=== PATIENT | female | born 1985 | race Caucasian/White ===

== ENCOUNTER → 2016-09-04 | Outpatient (CLI) | payer OTHER ==
[~2016-09-04] MED LIST: PRENTAB26 PO
[2016-09-04 18:24] LABS: URINE APPEARANCE CLEAR (CLEAR); URINE BILIRUBIN NEG (NEG); URINE COLOR YELLOW; URINE NITRITE NEG (NEG); UROBILINOGEN NEG (NEG)
[2016-09-04 18:27] LABS: MANUAL MICROSCOPIC REQUIRED? NO; REVIEW REQ? NO
== END | disposition home or self-care (01) ==
LOC: MERGE 17:27 → C.LABSPEC 17:27
PROVIDERS: ATTEND Obstetrics & Gynecology
DX: Z34.01 Encounter for supervision of normal first pregnancy, first trimester (principal)

== ENCOUNTER → 2016-09-09 | Outpatient (CLI) | payer OTHER ==
[2016-09-09 16:36] LABS: BASO % 0.4 %; BASO ABS # 0.03 K/uL (0-0.2); COMPLETE YES; EOS % 1.2 %; HEMATOCRIT 36.8 % (37-47); IG% 0.1 %; LYMPH % 23.8 %; LYMPH ABS # 1.99 K/uL (1.2-3.4); MEAN CELL VOLUME 88.9 fL (80-100); MEAN CORPUSCULAR HEMOGLOBIN 30.2 pg (25-34); MEAN PLATELET VOLUME 10.4 fL (7.4-10.4); MONO % 12.8 %; NEUT % 61.7 %; PLATELET COUNT 216 K/uL (130-400); RED BLOOD COUNT 4.14 M/uL (4.2-5.4); WHITE BLOOD COUNT 8.35 K/uL (4.8-10.8)
== END | disposition home or self-care (01) ==
LOC: C.LAB1850 15:21
PROVIDERS: ATTEND Obstetrics & Gynecology
DX: Z34.01 Encounter for supervision of normal first pregnancy, first trimester (principal)

== ENCOUNTER → 2016-09-09 | Outpatient (CLI) | payer OTHER ==
[2016-09-12 02:02] LABS: CHLAMYDIA TRACH RNA*** NOT DETECTED (NOT DETECTED); GC (NEIS GONORRHOEAE)RNA** NOT DETECTED (NOT DETECTED)
== END | disposition home or self-care (01) ==
LOC: C.LABSPEC 17:57
PROVIDERS: ATTEND Obstetrics & Gynecology
DX: Z34.01 Encounter for supervision of normal first pregnancy, first trimester (principal)

== ENCOUNTER 2016-10-28 13:21 | Emergency (ER) | payer OTHER ==
[~2016-10-28] VITALS: Ht 170.2 cm; Wt 53.4 kg
[2016-10-28 13:34] VITALS: Ht 170.2 cm; Wt 53.4 kg
[2016-10-28] MEDS ORDERED: SODIUM CHLORIDE 0.9% 1000ML 1,000 ML IV STA (13:52)
[2016-10-28] MEDS ORDERED: PRENTAB26 PO (14:10)
--- NOTE | 2016-10-28 14:11 | EMERGENCY ROOM VISIT NOTE ---
History First contact with patient: 13:42 Chief Complaint: SHORTNESS OF BREATH Stated Complaint: SOB Nursing Triage Summary: woke up sob for the past 3 days. throughout the day symptoms continued. patient 15 wks preg History of Present Illness The patient is a 30 year old female who presents to the Emergency Room with complaints of shortness of breath for the past 2 days. Patient states 2 days ago that she woke up with some shortness of breath and had some increased work of breathing off and on throughout the day. Today she is short of breath at rest and her symptoms are worse with exertion. She is currently 15 weeks , she called her PCP who told her to come to the emergency department for evaluation. She denies any chest pain, dizziness or lightheadedness, syncope, nausea or vomiting, headache, leg pain or swelling. She denies any previous history of blood clots. She is and states her has been going well she denies any abdominal pain, back pain, vaginal bleeding or discharge. She denies any history of asthma or lung problems, she has been feeling well with no URI type symptoms or cough, no recent sick contacts. Review of Systems A complete 10 point review of systems was reviewed with the patient with pertinent positives and negatives as per history of present illness. All else were negative. Past Medical/Surgical History No significant past medical or surgical history Social History Smoking Status: Never Smoker Alcohol Use: none Drug Use: none Marital Status: Housing Status: lives with family Occupation Status: employed Current/Historical Medications Scheduled Multivit/Min/Iron/Fol Ac/Pren ( Vitamin), 1 TAB PO DAILY Allergies No known allergies Physical Exam Vital Signs Date Time Temp Pulse Resp B/P (MAP) Pulse Ox O2 Delivery O2 Flow Rate FiO2 10/28/16 18:22 36.7 86 16 110/69 100 10/28/16 16:44 100 Room Air 10/28/16 16:11 86 16 100 10/28/16 16:00 110/69 10/28/16 15:41 89 18 100 10/28/16 15:36 87 17 100 10/28/16 15:33 113/65 10/28/16 14:41 95 19 100 10/28/16 14:36 98 19 100 10/28/16 14:31 93 20 100 10/28/16 14:30 128/81 10/28/16 14:29 93 10/28/16 14:16 118/64 10/28/16 14:16 100 Room Air 10/28/16 13:39 97 Room Air 10/28/16 13:34 36.7 104 18 137/87 100 Room Air Physical Exam CONSTITUTIONAL: No acute distress. Well hydrated, well appearing and well nourished. Alert and oriented X 4 with normal affect. No pallor. HEENT: Normocephalic, atraumatic. Pupils equal, round and reactive to light, EOMI. TMs normal. Pharynx normal. Moist mucous membranes. NECK: Supple, full active range of motion without discomfort. RESPIRATORY: Clear to auscultation bilaterally with no wheezing, crackles, rhonchi or stridor. Equal expansion bilaterally. CARDIOVASCULAR: Regular rate and rhythm with no murmurs, rubs or gallops. Normal peripheral perfusion. No edema. GASTROINTESTINAL: Soft, nontender, nondistended. Bowel sounds present in all quadrants. Gravid abdomen, palpable fundus just above the symphysis pubis. MUSCULOSKELETAL: Full range of motion of all joints without discomfort. Bilateral calves are soft, nontender, no swelling or edema noted. INTEGUMENTARY: No rash or other significant dermatologic conditions noted. NEUROLOGIC: Cranial nerves II-XII grossly intact. No focal neurologic deficits noted. Medical Decision & Procedures ER Provider Diagnostic Interpretation: (CHEST FOR PE) ANGIO WITH CT DOSE: 185.01 mGy.cm HISTORY: Chest pain dyspnea TECHNIQUE: Multiaxial CT images of the chest were performed following the intravenous administration of contrast to evaluate the pulmonary arteries. Maximal intensity projection images were also obtained. A dose lowering technique was utilized adhering to the principles of ALARA. COMPARISON STUDY: None. FINDINGS: There is a normal caliber thoracic aorta with no evidence for dissection. There is no evidence for pulmonary embolus. No pleural effusions. No pneumothorax. The liver and spleen are unremarkable. No mediastinal or hilar lymphadenopathy. The central airways are patent. The lungs are clear. IMPRESSION: No evidence for pulmonary embolus. Laboratory Results 10/28/16 14:07 Red Blood Count 4.02, Mean Corpuscular Volume 88.8, Mean Corpuscular Hemoglobin 30.8, Mean Corpuscular Hemoglobin Concent 34.7, Mean Platelet Volume 9.9, Neutrophils (%) (Auto) 75.3, Lymphocytes (%) (Auto) 14.9, Monocytes (%) (Auto) 8.3, Eosinophils (%) (Auto) 1.0, Basophils (%) (Auto) 0.2, Neutrophils # (Auto) 8.59, Lymphocytes # (Auto) 1.70, Monocytes # (Auto) 0.94, Eosinophils # (Auto) 0.11, Basophils # (Auto) 0.02 10/28/16 14:07 Test 10/28/16 13:52 10/28/16 14:07 White Blood Count 11.39 K/uL (4.8-10.8) Red Blood Count 4.02 M/uL (4.2-5.4) Hemoglobin 12.4 g/dL (12.0-16.0) Hematocrit 35.7 % (37-47) Mean Corpuscular Volume 88.8 fL (80-100) Mean Corpuscular Hemoglobin 30.8 pg (25-34) Mean Corpuscular Hemoglobin Concent 34.7 g/dl (32-36) Platelet Count 231 K/uL (130-400) Mean Platelet Volume 9.9 fL (7.4-10.4) Neutrophils (%) (Auto) 75.3 % Lymphocytes (%) (Auto) 14.9 % Monocytes (%) (Auto) 8.3 % Eosinophils (%) (Auto) 1.0 % Basophils (%) (Auto) 0.2 % Neutrophils # (Auto) 8.59 K/uL (1.4-6.5) Lymphocytes # (Auto) 1.70 K/uL (1.2-3.4) Monocytes # (Auto) 0.94 K/uL (0.11-0.59) Eosinophils # (Auto) 0.11 K/uL (0-0.5) Basophils # (Auto) 0.02 K/uL (0-0.2) RDW Standard Deviation 41.6 fL (36.4-46.3) RDW Coefficient of Variation 12.9 % (11.5-14.5) Immature Granulocyte % (Auto) 0.3 % Immature Granulocyte # (Auto) 0.03 K/uL (0.00-0.02) Prothrombin Time 10.7 SECONDS (9.0-12.0) Prothromb Time International Ratio 1.0 (0.9-1.1) Activated Partial Thromboplast Time 26.4 SECONDS (21.0-31.0) Partial Thromboplastin Ratio 1.0 D-Dimer 690 ug/L FEU (0-500) Anion Gap 7.0 mmol/L (3-11) Est Creatinine Clear Calc Drug Dose 114.5 ml/min Estimated GFR () 140.8 Estimated GFR (Non- 121.5 BUN/Creatinine Ratio 15.7 (10-20) Calcium Level 8.6 mg/dl (8.5-10.1) Total Bilirubin 0.2 mg/dl (0.2-1) Aspartate Amino Transf (AST/SGOT) 15 U/L (15-37) Alanine Aminotransferase (ALT/SGPT) 28 U/L (12-78) Alkaline Phosphatase 48 U/L (45-117) Troponin I < 0.015 ng/ml (0-0.045) Total Protein 6.8 gm/dl (6.4-8.2) Albumin 3.1 gm/dl (3.4-5.0) Globulin 3.7 gm/dl (2.5-4.0) Albumin/Globulin Ratio 0.8 (0.9-2) Medications Administered Medications (Trade) Dose Ordered Sig/Gadiel Route Start Time Stop Time Status Last Admin Dose Admin Sodium Chloride 1,000 ml @ 999 mls/hr Q1H1M STAT IV 10/28/16 13:52 10/28/16 14:52 DC 10/28/16 13:52 999 MLS/HR ECG Indication: SOB/dyspnea Rate (beats per minute): 88 Rhythm: normal sinus Findings: no acute ischemic change, no ectopy, other (rightward axis deviation) Comparison ECG Date: no prior available Medical Decision CC: Patient presenting with complaint of shortness of breath Interpretation of Labs: Mild leukocytosis, not significantly anemic, mild hypokalemia, no other significant electrolyte abnormalities, normal renal function, normal liver enzymes, coagulation factors within normal limits. Elevated d-dimer. Differential Diagnosis: Includes, but not limited to PE, DVT, acute OK, cardiomyopathy, pneumonia, bronchitis, anemia, electrolyte abnormality, dysrhythmia, anxiety, discomfort of . Medication Reconciliation: I attest that I have personally reviewed the patient' s current medication list. Vital signs review: I reviewed the patient's vital signs and interpret them as follows: T: Afebrile; BP: Mildly hypertensive; HR: Tachycardic; RR: Within normal limits; Pulse Ox: Within normal limits on room air. Summary: Patient was evaluated at bedside, history of physical exam performed. Patient is alert and in no acute distress, resting calmly in the stretcher. She is breathing comfortably with no signs of respiratory distress, not tachypneic, no accessory muscle use, 100% on room air. Lungs are clear to auscultation in all torres. Heart sounds are normal. Pulses are normal in all 4 extremities. No edema or calf tenderness/swelling. She is noted to be mildly tachycardic, and given her state, with complaints of shortness of breath, I am concerned for PE. I will start with a d-dimer and bilateral lower extremity duplex study for evaluation. I did discuss the course of workup with the patient, she verbalized understanding and was in agreement. Additional orders were placed at bedside for CBC to assess for anemia, CMP to assess renal function, liver enzymes, electrolytes, troponin, UA, EKG to evaluate for dysrhythmia or ischemic changes. Patient discussed with Dr. Kearns, who agrees with my assessment and plan. EKG, normal sinus rhythm with no acute ischemic changes or abnormal rhythms. Labs are as above, d-dimer is clinically elevated, no other significant abnormalities. Venous duplex of the bilateral lower extremities is negative for any DVT. I discussed risks and benefits of performing a CT chest to rule out PE with the patient, specifically risks of radiation to her developing fetus. She verbalized understanding and is in agreement with plans to proceed with the CT study. CT results reviewed, negative for pulmonary embolus or any other acute findings. Patient reassessed multiple times throughout ED stay, she remains well appearing and in no distress. She continues to deny chest pain. Her tachycardia has resolved after IV fluids, her BP improved to normal levels, and her RR and O2 sats remain normal. She was updated on all results and plan for discharge. I believe her shortness of breath may be related to her progressing . I encouraged her to follow closely with her PCP and OB providers. Patient was also instructed on return precautions, she verbalized understanding. Patient was discharged in stable condition and ambulatory. Impression Primary Impression: Shortness of breath Departure Information Dispostion Home / Self-Care Condition GOOD Referrals Olivier Bob M.D.([facility] (PCP) Patient Instructions ED Diet High Potassium, ED Dyspnea Shortness of Breath, My [facility] , Preg 2nd Trimester Coping, Preg Comfort Tips Additional Instructions You have been treated in the Emergency Department your shortness of breath. Laboratory results and imaging studies have ruled out any emergent causes for your shortness of breath which would warrant admission or surgery. Specifically, there is no evidence of a blood clot in her lungs or your legs today. Drink plenty of fluids to stay well hydrated. The cause of your shortness of breath is unclear from today's evaluation, but may be related to your progressing . It is important that you follow closely with your PCP and OB providers. Please return to the emergency department if your symptoms persist or get worse , including worsening shortness of breath, chest pain, severe dizziness or passing out, coughing up blood, severe nausea or vomiting, fever/chills, or any other concerns.
[2016-10-28 14:24] LABS: BASO % 0.2 %; BASO ABS # 0.02 K/uL (0-0.2); COMPLETE YES; HEMATOCRIT 35.7 % (37-47); IG% 0.3 %; LYMPH % 14.9 %; MEAN CELL VOLUME 88.8 fL (80-100); MEAN CORPUSCULAR HEMOGLOBIN 30.8 pg (25-34); MEAN CORPUSCULAR HGB CONC 34.7 g/dl (32-36); MEAN PLATELET VOLUME 9.9 fL (7.4-10.4); MONO % 8.3 %; NEUT % 75.3 %; PLATELET COUNT 231 K/uL (130-400); RED BLOOD COUNT 4.02 M/uL (4.2-5.4); WHITE BLOOD COUNT 11.39 K/uL (4.8-10.8)
[2016-10-28 14:36] LABS: ALT/SGPT 28 U/L (12-78); BLOOD UREA NITROGEN 9 mg/dl (7-18); BUN/CREATININE RATIO 15.7 (10-20); CALCIUM 8.6 mg/dl (8.5-10.1); CARBON DIOXIDE 25 mmol/L (21-32); CHLORIDE 106 mmol/L (98-107); GLUCOSE 86 mg/dl (70-99); POTASSIUM 3.3 mmol/L (3.5-5.1); SODIUM 138 mmol/L (136-145)
[2016-10-28 14:41] LABS: ALB/GLOB RATIO 0.8 (0.9-2); ALKALINE PHOSPHATASE 48 U/L (45-117); AST/SGOT 15 U/L (15-37)
[2016-10-28 14:49] LABS: PROTHROMBIN TIME (PATIENT) 10.7 SECONDS (9.0-12.0)
--- NOTE | 2016-10-28 15:11 | DIAGNOSTIC IMAGING REPORT ---
ULTRASOUND VENOUS DOPPLER LWR EXT BILA CLINICAL HISTORY: Leg swelling SHORTNESS OF BREATH. . COMPARISON STUDY: No previous studies for comparison. FINDINGS: Real-time and color flow Doppler imaging were performed. Flow was seen within the femoral, popliteal and calf veins with no intraluminal thrombus demonstrated. The saphenous vein is patent. IMPRESSION: No evidence of lower extremity DVT. Electronically signed by: Juno Rowan M.D. 10/28/2016 3:09 PM Dictated Date/Time: 10/28/2016 3:09 PM
--- NOTE | 2016-10-28 16:42 | DIAGNOSTIC IMAGING REPORT ---
(CHEST FOR PE) ANGIO WITH CT DOSE: 185.01 mGy.cm HISTORY: Chest pain dyspnea TECHNIQUE: Multiaxial CT images of the chest were performed following the intravenous administration of contrast to evaluate the pulmonary arteries. Maximal intensity projection images were also obtained. A dose lowering technique was utilized adhering to the principles of ALARA. COMPARISON STUDY: None. FINDINGS: There is a normal caliber thoracic aorta with no evidence for dissection. There is no evidence for pulmonary embolus. No pleural effusions. No pneumothorax. The liver and spleen are unremarkable. No mediastinal or hilar lymphadenopathy. The central airways are patent. The lungs are clear. IMPRESSION: No evidence for pulmonary embolus. The above report was generated using voice recognition software. It may contain grammatical, syntax or spelling errors. Electronically signed by: Sohail Greene M.D. 10/28/2016 4:40 PM Dictated Date/Time: 10/28/2016 4:37 PM
[2016-10-28 16:44] VITALS: O2SAT 100
[2016-10-28] MEDS ORDERED: OPTIRAY 320 IV PRN (16:45)
[2016-10-28 18:22] VITALS: BP 110/69; PULSE 86; TEMP 36.7; O2SAT 100
[2016-10-28 18:50] LABS: URINE APPEARANCE CLEAR (CLEAR); URINE BILIRUBIN NEG (NEG); URINE COLOR YELLOW; URINE NITRITE NEG (NEG); URINE SPECIFIC GRAVITY > 1.045 (1.000-1.030); UROBILINOGEN NEG (NEG)
[2016-10-28 18:55] LABS: MANUAL MICROSCOPIC REQUIRED? NO; REVIEW REQ? NO
== END 2016-10-28 18:09 | disposition home or self-care (01) ==
LOC: C.EDB 13:22 → C.EDA 18:09
DX: O99.512 Diseases of the respiratory system complicating pregnancy, second trimester (principal); R06.02 Shortness of breath; Z3A.15 15 weeks gestation of pregnancy

== ENCOUNTER → 2016-11-05 | Outpatient (CLI) | payer OTHER ==
[2016-11-05 10:39] LABS: GTGD 50 Grams
[2016-11-06 14:12] LABS: AFP CONCENTRATION 53.3 NG/ML; AFP MULTIPLE OF MEDIAN 1.29; AFPTS GESTATIONAL AGE 16.6 WEEKS; AFPTS INSULIN DEP DIABETIC? NO; AFPTS MATERNAL WT 119 LBS; ALPHA-FETOPROTEIN RACE CAUCASIAN=W; HISTORY OF NTD NO; REPEAT SAMPLE? NO
== END | disposition home or self-care (01) ==
LOC: C.LAB1850 09:25
PROVIDERS: ATTEND Obstetrics & Gynecology
DX: Z34.02 Encounter for supervision of normal first pregnancy, second trimester (principal); Z3A.00 Weeks of gestation of pregnancy not specified

== ENCOUNTER → 2017-01-28 | Outpatient (CLI) | payer OTHER ==
[2017-01-28 12:48] LABS: GTGD 50 Grams
[2017-01-28 14:09] LABS: URINE APPEARANCE CLOUDY (CLEAR); URINE BILIRUBIN NEG (NEG); URINE COLOR YELLOW; URINE EPITHELIAL CELL AUTO >30 /lpf (0-5); URINE NITRITE NEG (NEG); UROBILINOGEN NEG (NEG)
[2017-01-28 14:15] LABS: MANUAL MICROSCOPIC REQUIRED? NO; REVIEW REQ? NO
== END | disposition home or self-care (01) ==
LOC: C.LAB1850 09:54
PROVIDERS: ATTEND Obstetrics & Gynecology
DX: Z34.03 Encounter for supervision of normal first pregnancy, third trimester (principal)

== ENCOUNTER → 2017-02-13 | Outpatient (CLI) | payer OTHER ==
[2017-02-13 10:04] LABS: HEMATOCRIT 32.9 % (37-47)
== END | disposition home or self-care (01) ==
LOC: C.LAB1850 09:18
PROVIDERS: ATTEND Obstetrics & Gynecology
DX: Z34.03 Encounter for supervision of normal first pregnancy, third trimester (principal)

== ENCOUNTER 2017-03-20 07:34 | Inpatient (IN) | payer OTHER ==
[~2017-03-20] VITALS: Ht 167.6 cm; Wt 67.5 kg
[2017-03-20] MEDS ORDERED: LACTATED RINGER'S 1000ML 1,000 ML IV PRN (08:33)
[2017-03-20] MEDS ORDERED: LACTATED RINGER'S 1000ML 1,000 ML IV SCH (08:33)
[2017-03-20] MEDS ORDERED: PENICILLIN G POTASSIUM IV 3 MU in DEXTROSE 5% 100ML 100 ML IV PRN (08:45)
--- NOTE | 2017-03-20 08:54 | Medical Student: [facility] ---
Med Student History & Physical Date of Service Mar 20, 2017. Chief Complaint Check Ruptured Membranes, labor History of Present Illness Source: patient, spouse, clinic records, hospital records Patient is a 31YOF, with an MARIELA of 04/18/2017 by LMP and confirmed on first trimester ultrasound, who presents to L&D at 35-5 of GA with concerns of labor and rupture of membranes. course has been uncomplicated. Patient was sleeping this morning and woke up around 4AM to roll over in bed. She felt some fluid on her thighs and at first thought she may have leaked some urine. However, she continued to leak fluid and proceeded to soak "a ton" of pantyliners. The fluid was described as being clear. The patient is unsure if she is feeling any contractions at this time, but does report some intermittent "tightening" which started around 5AM this morning. labs: Blood type O+, RI, HBV neg, HIV neg, C/G neg, VDRL/RPR nonreactive, panorama and MSAFP negative, GBS status UNKNOWN, 1 hr glucose 79mg/ dL, H&H 11.1/33.9. 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 She has no history of abnormal pap smears. She does have a history of a prior chlamydial infection. Past Medical History None. Past Surgical History [place] teeth. Family History Sister delivered a baby with a "hole in the heart and lung." Mom has a PFO Social History Smoking Status: Never Smoker Smokeless Tobacco Use: No Alcohol Use: none Drug Use: none Marital Status: Housing status: lives with significant other Occupational Status: employed Allergies Coded Allergies: No Known Allergies (Unverified , 03/20/17) Home Medications Multivit/Min/Iron/Fol Ac/Pren ( Vitamin), 1 TAB PO DAILY Review of Systems Constitutional: No fever, No chills Respiratory: No cough, No shortness of breath Cardiovascular: No chest pain, No edema, No palpitations Abdomen: No pain, No nausea, No vomiting Genitourinary - Female: No dysuria, No urinary incontinence, No urinary retention Psychiatric: No depression symptoms Physical Exam General Appearance: WD/WN, no apparent distress Eyes: normal inspection ENT: normal ENT inspection, hearing grossly normal Respiratory/Chest: chest non-tender, lungs clear, normal breath sounds, no respiratory distress, no accessory muscle use Cardiovascular: regular rate, rhythm, no edema, no gallop, no murmur, normal peripheral pulses Abdomen / GI: normal bowel sounds, non tender, soft, no organomegaly, + pertinent finding (Gravid abdomen. FHT's present. Fetus in vertex position. Estimated weight of 7lbs. ) Fundal Height: Early term heighth. Genitourinary - Female: external genitalia normal, + pertinent finding (Exam performed by Dr. Lind found the cervix to be 3cm, 80% effaced, and -2 station. ) Back: normal inspection, no CVA tenderness Extremities: normal inspection, no calf tenderness, no pedal edema Neurologic/Psych: no motor/sensory deficits, alert, normal mood/affect, oriented x 3 Skin: normal color, warm/dry, no rash Monitoring External Monitor: Baseline heart rate of 130, moderate variability, accels present, no decels, category 1 tracing. Tocodynamometer: Irregular contractions present occuring every 4-6 minutes. Assessment and Plan Assessment: Patient is a 31 YOF at 35-6 weeks of GA with PPROM and labor. There are no known complications. tracing category 1. Plan: Admit to L&D. Will continue with [place] and EFM for now. Will administer first dose of penicillin at this time for unknown GBS status. Patient is planning to get an epidural for pain control. Will order the epidural once she gets into a more consistent labor pattern. H&H is ordered. Will continue to monitor and plan for a normal vaginal delivery.
[2017-03-20 08:56] LABS: HEMATOCRIT 37.5 % (37-47); HEMOGLOBIN 12.9 g/dL (12.0-16.0); MEAN CELL VOLUME 93.3 fL (80-100); MEAN CORPUSCULAR HEMOGLOBIN 32.1 pg (25-34); MEAN CORPUSCULAR HGB CONC 34.4 g/dl (32-36); MEAN PLATELET VOLUME 10.6 fL (7.4-10.4); PLATELET COUNT 190 K/uL (130-400); RED CELL DISTRIBUTION WIDTH CV 12.7 % (11.5-14.5); RED CELL DISTRIBUTION WIDTH SD 43.2 fL (36.4-46.3)
[2017-03-20] MEDS ORDERED: PENICILLIN G POTASSIUM IV 6 MU in DEXTROSE 5% 250ML 250 ML IV ONE (09:00)
[2017-03-20 09:23] VITALS: Ht 167.6 cm; Wt 67.5 kg
[2017-03-20] MEDS ORDERED: BUPIVACAINE 0.25% 30 ML VIAL ONE (10:12)
[2017-03-20] MEDS ORDERED: FENTANYL CITRATE INJ 50 MCG/1 ML 2 ML VIAL ONE (10:13)
[2017-03-20] MEDS ORDERED: EpHEDrine SULFATE INJ 50 MG/ML AMP ONE (10:13)
[2017-03-20] MEDS ORDERED: FENTANYL 2MCG/ML ROPIV 1.25MG/ML 100ML BAG EPI ONE (10:13)
[2017-03-20] MEDS ORDERED: LACTATED RINGER'S 1000ML 500 ML IV PRN (11:31)
[2017-03-20] MEDS ORDERED: NALOXONE HCL INJ 1 MG in SODIUM CHLORIDE 0.9% 1000ML 1,000 ML IV PRN (11:31)
[2017-03-20] MEDS ORDERED: DiphenhydrAMINE HCL 50 MG/ML VIAL IV PRN (11:45)
[2017-03-20] MEDS ORDERED: FENTANYL 2MCG/ML ROPIV 1.25MG/ML 100ML BAG EPI PRN (11:45)
[2017-03-20] MEDS ORDERED: EpHEDrine SULFATE INJ 50 MG/ML AMP IV PRN (11:45)
[2017-03-20] MEDS ORDERED: NALOXONE HCL 0.4 MG/1 ML VIAL/CARP IV PRN (11:45)
[2017-03-20] MEDS ORDERED: ONDANSETRON INJ 2 MG/ML 2 ML VIAL IV PRN (11:45)
[2017-03-20] MEDS ORDERED: NALBUPHINE HCL INJ 10 MG/ML AMP IV PRN (11:45)
[2017-03-20] MEDS ORDERED: OXYTOCIN 30 UNITS/500ML NSS IV ONE (14:10)
[2017-03-20] MEDS ORDERED: OXYCODONE/ACETAMINOPHEN 5-325 TAB PO PRN (15:15)
[2017-03-20] MEDS ORDERED: OXYTOCIN 30 UNITS/500ML NSS IV PRN (15:15)
[2017-03-20] MEDS ORDERED: SUPERCREAM 0.870 % 15GM JAR EXT PRN (15:15)
[2017-03-20] MEDS ORDERED: HYDROCORTISONE ACETATE 25 MG SUPP PR PRN (15:15)
[2017-03-20] MEDS ORDERED: ACETAMINOPHEN 325 MG TAB PO PRN (15:15)
[2017-03-20] MEDS ORDERED: DIPHTHERIA/TETANUS/PERTUSSIS 0.5 ML SYR/VIAL IM. ONE (15:15)
[2017-03-20] MEDS ORDERED: LANOLIN OINT EXT PRN (15:15)
[2017-03-20] MEDS ORDERED: BENZOCAINE 20% AER SPR 82.5 GM CAN EXT PRN (15:15)
--- NOTE | 2017-03-20 15:25 | Medical Student: [facility] ---
Medical Student Delivery Note Patient is a 31 YOF now P1 who presented to L&D this morning with PPROM at 35-6 weeks of GA. Patient's history is unremarkable other than GBS status being unknown due to only 35 wks of GA. She is O+, antibody screen negative, RI, HBV negative, HIV negative, VDRL/RPR nonreactive, G/C negative, and GBS negative. Patient received epidural analgesia once she reached 3cm dilation. Over the next 5 hours she continued in a normal labor pattern with a category 1 tracing. She was then fully dilated. The patient pushed for about a half hour to deliver a viable, vigorous male infant. A nuchal cord x1 was present and immediately reduced. The mouth and nares were bulb suctioned at the perineum. The infant's shoulders and body then delivered without difficulty. The cord was doubly clamped and cut by the 's father. The infant immediately cried, however due to the being premature he was transferred to the bed for evaluation by pediatrics. Apgars were 9/10. The placenta was manually extracted. Examination of the placenta was normal, with no evidence of retained placenta and a normal three vessel cord. Attention was then turned to the patient's perineum. A midline first degree laceration was noted and repaired in the usual fashion with 3-0 vicryl. Hemostasis was achieved after repair of the laceration. EBL for delivery is 350mL. Sponge and needle count were correct. At the time of this note, and mother are resting comfortably in labor and delivery.
--- NOTE | 2017-03-20 15:31 | DELIVERY SUMMARY ---
DATE OF OPERATION: 03/20/2017 PREOPERATIVE DIAGNOSIS: 1. Premature rupture of membranes at 35 6/7 weeks. 2. labor. POSTOPERATIVE DIAGNOSIS: Same. PROCEDURES: 1. Epidural anesthesia. 2. Normal spontaneous vaginal delivery. 3. Small vaginal laceration with repair. SURGEON: Dr. Almeida. GASTROINTESTINAL TECHNICIAN: Vasiliy Nava, 3. ANESTHESIA: Epidural. PROCEDURE: The patient presented to labor and delivery noting that she had been leaking fluid since about 4:00 in the morning. It was confirmed that she ruptured membranes for clear fluid and she was 3, 80, -2 and tony. She was admitted. She was expectantly managed. She desired an epidural, was 4 and 90. Epidural was placed. She progressed quickly and spontaneously to complete complete and +2 station and pushed effectively to deliver a viable male in ALBIN presentation. A nuchal cord was reduced x1. The nose and mouth were bulb suctioned. The rest of the was then delivered without difficulty. The cord was clamped and cut. The was handed off to the awaiting theatrical variety agent for drying and attention. Cord blood and gases were obtained. Placenta was manually extracted as there was one lobe that was slightly adherent. Hemostasis was then obtained with dilute Pitocin and fundal massage. Small vaginal introital laceration was repaired with 3-0 Vicryl. The perineum, rest of the cervix, sulci and rectum were all examined and found to be intact. Estimated blood loss 400 cc. Apgars 9 and 10. Mother and baby doing well at the end of the delivery. I attest to the content of the Intraoperative Record and any orders documented therein. Any exception s are noted below.
--- NOTE | 2017-03-20 19:02 | Anesthesia Procedure Note ---
Anesthesia Epidural Removal Nt Date & Time Mar 20, 2017 at 19:02 Vital Signs Pain Intensity: 6.0 Notes Mental Status: alert / awake / arousable, participated in evaluation Nausea / Vomiting: adequately controlled Pain: adequately controlled Airway Patency, RR, SpO2: stable & adequate BP & HR: stable & adequate Hydration State: stable & adequate Neuraxial Anesthesia: was administered Anesthetic Complications: no major complications apparent, pt satisfied with anesthetic care Epidural: removed without complications, with tip intact
[2017-03-20 19:10] VITALS: BP 128/88; PULSE 101; TEMP 37.3
[2017-03-20] MEDS: DOCUSATE SODIUM 100 MG CAP PO SCH (20:00)
[2017-03-20] MEDS: IBUPROFEN 600 MG TAB PO PRN (23:26)
[2017-03-20 23:30] VITALS: BP 141/91; PULSE 92; TEMP 37.7
[2017-03-21 00:15] VITALS: BP 134/73; PULSE 106; TEMP 37.7; O2SAT 97
[2017-03-21 03:15] VITALS: BP 130/78; PULSE 77; TEMP 37.3
[2017-03-21] MEDS: IBUPROFEN 600 MG TAB PO PRN ×2 (03:41→17:37)
--- NOTE | 2017-03-21 06:58 | Medical Student: [facility] ---
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 Subjective conversation w/ patient, conversation w/ family, physical exam, chart review, lab review Ambulation: limited ambulation Voiding: no voiding problems, no incontinence Diet Tolerance: Regular Diet Lochia: Moderate Feeding Type: Breast Feeding Pain: Minimal. Controlled with motrin. Notes: Lory is doing well. She got about 5 hours of sleep last night, describing this whole experience as "unreal." We talked about some of the hormonal changes that happen post- and some signs of post- depression. She doesn't currently feel like she's experiencing any depression, just that she is adjusting to the fact that the baby is here a month earlier than planned. Lochia is slowing down for her overnight. She is trying to breastfeed but the baby is having some difficulty latching so she is supplementing with breast pumping. Vitals were stable overnight. Review of Systems Constitutional: No fever, No chills Respiratory: No cough, No shortness of breath Cardiac: No chest pain, No palpitations Breast: No breast pain Abdomen: No pain, No nausea, No vomiting, No diarrhea Female : No dysuria, No incontinence Objective Vital Signs Date Time Temp Pulse Resp B/P (MAP) Pulse Ox O2 Delivery O2 Flow Rate FiO2 03/21/17 03:15 37.3 77 18 130/78 (95) Room Air 03/21/17 00:15 37.7 106 18 134/73 (93) 97 Room Air 03/20/17 23:30 Room Air 03/20/17 23:30 37.7 92 18 141/91 (108) Room Air 03/20/17 19:10 Room Air 03/20/17 19:10 37.3 101 16 128/88 (101) Room Air Physical Exam General Appearance: WELL-APPEARING, WD/WN, NO APPARENT DISTRESS Respiratory/Chest: chest non-tender, lungs clear, normal breath sounds, no respiratory distress, no accessory muscle use Cardiovascular: regular rate, rhythm, no edema, no gallop, no JVD, no murmur Abdomen: normal bowel sounds, non tender, soft Fundus: Firm, Relation to Umbilicus (2cm below the umbilicus) Extremities: normal range of motion, non-tender, no pedal edema, no calf tenderness Laboratory Results Last 24 Hours Test 03/20/17 08:39 2/1/18 11:31 03/21/17 04:44 White Blood Count 14.70 K/uL Red Blood Count 4.02 M/uL Hemoglobin 12.9 g/dL Hematocrit 37.5 % Mean Corpuscular Volume 93.3 fL Mean Corpuscular Hemoglobin 32.1 pg Mean Corpuscular Hemoglobin Concent 34.4 g/dl RDW Standard Deviation 43.2 fL RDW Coefficient of Variation 12.7 % Platelet Count 190 K/uL Mean Platelet Volume 10.6 fL Amniotic Fluid Protein POS Assessment and Plan Post- Day Number: 1 Continue Routine Care: Assessment: 31YOF now P1 PPD#1 s/p NVD. Lory's course thus far has been uncomplicated. Plan: Will continue with routine care. Repeat H&H drawn this morning. Continue with motrin prn for controlling pain. Discussed about the role of lawrence Ng, our home planning consultant salesperson, in helping with given this is her first baby and the baby is premature. She was excited to meet with her. I spoke with Berenice and she is going to meet with her today. Encouraged Lory to be up and walking laps around the unit today.
[2017-03-21 07:49] LABS: HEMATOCRIT 35.6 % (37-47); HEMOGLOBIN 12.3 g/dL (12.0-16.0)
[2017-03-21] MEDS ORDERED: DOCUSATE SODIUM 100 MG CAP PO SCH (08:00)
--- NOTE | 2017-03-21 08:04 | Progress Note ---
Subjective Mar 21, 2017. Subjective conversation w/ patient, physical exam, lab review Ambulation: ambulating normally Voiding: no voiding problems Passing Gas: Yes Diet Tolerance: Regular Diet Lochia: Small Feeding Type: Breast Feeding Pain: controlled with oral pain meds Objective Vital Signs Date Time Temp Pulse Resp B/P (MAP) Pulse Ox O2 Delivery O2 Flow Rate FiO2 03/21/17 03:15 37.3 77 18 130/78 (95) Room Air 03/21/17 00:15 37.7 106 18 134/73 (93) 97 Room Air 03/20/17 23:30 Room Air 03/20/17 23:30 37.7 92 18 141/91 (108) Room Air 03/20/17 19:10 Room Air 03/20/17 19:10 37.3 101 16 128/88 (101) Room Air Physical Exam General Appearance: WELL-APPEARING, WD/WN, NO APPARENT DISTRESS Abdomen: non tender, no organomegaly Fundus: Firm, Non-Tender, Relation to Umbilicus (2 below u) Extremities: non-tender, normal inspection Laboratory Results Last 24 Hours Test 03/20/17 08:39 03/20/17 11:31 03/21/17 07:21 White Blood Count 14.70 K/uL Red Blood Count 4.02 M/uL Hemoglobin 12.9 g/dL 12.3 g/dL Hematocrit 37.5 % 35.6 % Mean Corpuscular Volume 93.3 fL Mean Corpuscular Hemoglobin 32.1 pg Mean Corpuscular Hemoglobin Concent 34.4 g/dl RDW Standard Deviation 43.2 fL RDW Coefficient of Variation 12.7 % Platelet Count 190 K/uL Mean Platelet Volume 10.6 fL Amniotic Fluid Protein POS Assessment and Plan Problem List Medical Problems: (1) Shortness of breath Status: Acute Post- Day#: 1 Continue Routine Care: Doing well. Routine care.
[2017-03-21] MEDS: PRENATAL VITAMIN TAB PO SCH (08:35)
[2017-03-21] MEDS: DOCUSATE SODIUM 100 MG CAP PO SCH ×2 (08:36→20:42)
--- NOTE | 2017-03-21 09:19 | Discharge Instructions ---
Discharge Instructions Date of Service Mar 21, 2017. Admission Reason for Admission: Check Ruptured Membranes Discharge Discharge Diagnosis / Problem: Vaginal Delivery Discharge Goals Goal(s): Routine recovery after delivery Medications Continue Dispensed Medications: supercream, dermaplast, tucks, lansinoh Activity Recommendations Activity Limitations: per Instructions/Follow-up section . Instructions / Follow-Up Instructions / Follow-Up ACTIVITY RECOMMENDATIONS: * Gradual return to full activity over the next 2-3 weeks. * No lifting - nothing heavier than baby over the next 2-3 weeks. * Do not engage in vigorous exercise, sexual activity or sports until cleared by your physician. * Do not drive or operate any motorized equipment until cleared by your physician. * You may shower/bathe daily. MEDICATIONS: For discomfort or pain, you may use Acetaminophen (Tylenol), Ibuprofen (Advil), or Naproxen (Aleve) following the package directions. For constipation you may use Colace following the package directions. BREAST CARE: If you are not breast feeding: * Wear a supportive bra 24 hours a day for one to two weeks. * Avoid stimulating your breasts and nipples as much as possible during the first few weeks after delivery. * When taking a shower, have the warm water hit your back, not breasts. * When your breasts feel full, apply ice packs. Usually three to four times a day helps ease the discomfort. * Take a mild pain medication (Tylenol / Motrin) when you are uncomfortable. If breast feeding: * Use breast milk to lubricate nipples. Lansinoh cream may be used for sore nipples. You do not need to remove cream prior to breast feeding. If using a different brand of cream, check the label for directions regarding removal of cream prior to nursing. * Wear a supportive bra. * If having problems with breasts or breast feeding, call a contact center consultant or your health care provider. EPISIOTOMY CARE: After delivery, if you have an episiotomy (stitches), the following steps will ease discomfort and aid healing. * For the first 24 hours after delivery, place ice packs next to your episiotomy to help reduce swelling. * After the first 24 hour-period, sitz baths, either portable or in the tub, are suggested. A shower with a shower arm sprayed over the episiotomy may be comforting. * Geraldine care should be done after each voiding and bowel movement. Squirt warm water from a plastic bottle over the perineum (region of the body between the anus and urinary opening) and pat dry. * Use Dermoplast to ease discomfort. Shake container. [place] directly over the episiotomy. Place a Tucks on a clean sanitary pad next to your episiotomy. SPECIAL CARE INSTRUCTIONS: When you are discharged from the hospital, it is important for you to follow the instructions listed below: * During the first week at home, you should be able to care for yourself and your baby. In addition, the usual light household activities are encouraged. * Limit your activities to the way you feel. Do not try to clean the house or move furniture. Be sensible. * If you actively engage in sports and have done so up until the time of your delivery, you may resume these activities as soon as you feel able. This may take up to one month or even longer. Use good judgment. * Continue to take your vitamins for at least six weeks after the of your baby. * Your diet need not be limited unless you were on a special diet before your delivery. Breast-feeding mothers need around 2500 calories per day and at least 64-80 ounces of fluid per day (8 to 10 glasses). * You should eat foods from the four major food groups. Crash diets or fad diets are to be avoided. Eating lean meats, fresh fruits and vegetables, low-fat dairy products, high fiber foods and a regular exercise program, will help you get back to your pre- weight without putting your health at risk. * Constipation is sometimes a problem after delivery. Take a mild laxative as needed. If breast feeding, Milk of Magnesia is acceptable to use. You may use a suppository or Fleets enema if no episiotomy. * A daily shower or tub bath is suggested. Be sure to thoroughly and gently dry the perineum. * A bloody vaginal discharge will usually continue until around four weeks post . A small amount of bleeding may continue for as long as six weeks. Vaginal discharge changes from the bright red bleeding after delivery to pink then brownish and finally yellowish-pink before becoming white and disappearing. * Bleeding may increase with activity. Your first period may come in 4-8 weeks. If you are breast feeding, your period may be delayed even longer. * [place] (sex) can begin whenever both you and your partner feel comfortable and do not have any form of genital infection. It is recommended that you wait at least six weeks for internal and external healing to occur. If you have questions, please talk to your health care practitioner. A condom should be used to prevent infection and . * Foreplay, gentle intercourse and lubrication is very important the first several times to prevent pain. A water-based lubricant such as K-Y jelly or Astroglide may be used. * If you have RH negative blood and your baby is RH positive, you will receive RHOGAM by injection prior to discharge. The nurse will give you a card to keep with you that has the date and place that you received RHOGAM after delivery. * During your care, you had a Rubella screen done to check for the presence of rubella antibodies in your blood. If your test was negative, you will receive a Rubella vaccine prior to discharge. This vaccine may cause a fever, soreness at the injection site and flu-like symptoms. If these symptoms persist, notify your health care practitioner. is not advised for one month after a Rubella vaccine. * Verbalizes understanding of car seat law as reviewed with patient nursing. * Car Seat hand-out given and reviewed with patient by nursing. * Shaken baby information reviewed with patient by nursing. Call you doctor if: * Heavy bleeding (saturating several pads an hour) or passing clots the size of your fist. * A fever >101 degrees F (38.3 degrees C) on two occasions four hours apart and /or chills. * Unusual pain in the pelvic or vaginal areas. * "Baby Blues" lasting longer than two weeks. If you have any questions or concerns, call your health care practitioner at . FOLLOW UP VISIT: * Please call the office at to schedule a 6 week examination. It is important you keep this appointment. It is important for you to make arrangements for either yearly or twice yearly check-ups thereafter. Current Hospital Diet Patient's current hospital diet: Regular OB Diet Discharge Diet Recommended Diet: Regular Diet Pending Studies Studies pending at discharge: no Medical Emergencies . Who to Call and When: Medical Emergencies: If at any time you feel your situation is an emergency, please call 911 immediately. . Non-Emergent Contact Non-Emergency issues call your: Primary Care Provider . . "Provider Documentation" section prepared by Chayo Menjivar. . VTE Core Measure Inpt VTE Proph given/why not?: Treatment not indicated
[2017-03-21 12:38] VITALS: BP 129/87; PULSE 89; TEMP 37
[2017-03-21 15:46] VITALS: BP 135/83; PULSE 97; TEMP 37.1
[2017-03-21 17:31] VITALS: TEMP 37.4
[2017-03-22 00:10] VITALS: BP 128/79; PULSE 76; TEMP 37; O2SAT 98
--- NOTE | 2017-03-22 06:30 | Progress Note ---
Subjective Mar 22, 2017. Subjective conversation w/ patient Ambulation: ambulating normally Voiding: no voiding problems Passing Gas: Yes Diet Tolerance: Regular Diet Lochia: Moderate Feeding Type: Breast Feeding Pain: Minimal pain reported, well controlled with analgesia Review of Systems Constitutional: No fever, No chills Respiratory: No cough, No shortness of breath Cardiac: No chest pain Abdomen: No pain, No nausea, No vomiting Female : No dysuria Objective Vital Signs Date Time Temp Pulse Resp B/P (MAP) Pulse Ox O2 Delivery O2 Flow Rate FiO2 03/22/17 00:10 37.0 76 18 128/79 (95) 98 Room Air 03/22/17 00:10 98 Room Air 03/21/17 17:31 37.4 03/21/17 15:46 37.1 97 16 135/83 (100) 03/21/17 12:38 Room Air 03/21/17 12:38 37.0 89 18 129/87 (101) Room Air Physical Exam General Appearance: WELL-APPEARING, WD/WN, NO APPARENT DISTRESS Respiratory/Chest: chest non-tender, lungs clear, normal breath sounds, no respiratory distress, no accessory muscle use Cardiovascular: regular rate, rhythm, no edema, no gallop, no murmur Abdomen: normal bowel sounds, non tender, soft Fundus: Firm, Non-Tender, Relation to Umbilicus (3 below) Extremities: normal inspection, no pedal edema, no calf tenderness Laboratory Results Last 24 Hours Test 03/21/17 07:21 Hemoglobin 12.3 g/dL Hematocrit 35.6 % Medications Current Inpatient Medications Medications (Trade) Dose Ordered Sig/Gadiel Route Start Time Stop Time Status Last Admin Dose Admin Oxytocin (Pitocin IV) 30 units UD PRN IV 03/20/17 15:15 04/19/17 15:14 Benzocaine (Dermoplast Aero Spr) 1 appln PRN PRN EXT 03/20/17 15:15 04/19/17 15:14 Cocaine HCl (Supercream 0.870% Cr) BID PRN EXT 03/20/17 15:15 04/03/17 15:14 Hydrocortisone Acetate (Anusol Hc Supp) 25 mg BID PRN DC 03/20/17 15:15 04/19/17 15:14 Lanolin (Lanolin Oint) PRN PRN EXT 03/20/17 15:15 04/19/17 15:14 Prenat Multivit/ [place]/Iron/Folic Ac ( Vitamin Tab) 1 tab DAILY PO 03/21/17 08:00 04/20/17 07:59 03/21/17 08:35 1 TAB Ibuprofen (Motrin Tab) 600 mg Q4H PRN PO 03/20/17 15:15 04/19/17 15:14 03/21/17 17:37 600 MG Acetaminophen (Tylenol Tab) 650 mg Q6H PRN PO 03/20/17 15:15 04/19/17 15:14 Oxycodone/ Acetaminophen (Percocet 5-325mg Tab) 1 tab Q4H PRN PO 03/20/17 15:15 04/03/17 15:14 Docusate Sodium (coLACE CAP) 100 mg BID PO 03/20/17 20:00 04/19/17 19:59 03/21/17 20:42 100 MG Assessment and Plan Problem List Medical Problems: (1) Shortness of breath Status: Acute Post- Day#: 2 Continue Routine Care: 31 year old [id number] s/p NVD day 2 - O+, rubella immune, GBS -ve - patient doing well clinically - continue regular diet - continue encouraging ambulation and - monitor lochia - vitals reviewed and wnl - Hgb stable - 12.2 -> 12.3 - will review d/c instructions as pt ready for d/c today Resident Physician Supervision Note: I was present with Dr. Menjivar during the history and exam. I discussed the case with the resident and agree with the findings and plan as documented in the note. Any exceptions or clarifications are listed here: Doing well PPD#2. Discharge home today. Documented By: Katiana Christiansen Resident Tracking Resident Involvement: Resident Care Provided Care Provided: OB Delivery
[2017-03-22 07:25] VITALS: BP 124/77; PULSE 86; TEMP 37.1; O2SAT 97
[2017-03-22] MEDS: PRENATAL VITAMIN TAB PO SCH (08:50)
[2017-03-22] MEDS: DOCUSATE SODIUM 100 MG CAP PO SCH (08:50)
[2017-03-22 16:15] VITALS: BP_DIAS 77; PULSE 86; TEMP 37.1
== END 2017-03-22 16:15 | disposition home or self-care (01) | DRG 775 ==
LOC: C.OPB 07:34 → C.LD 07:34 → C.OPB 08:34 → C.LD 08:34 → C.OBG 18:37
PROVIDERS: ADMIT Obstetrics & Gynecology; ATTEND Obstetrics & Gynecology
PROC: 0UQGXZZ Repair Vagina, External Approach (ICD-10-PCS; principal; 2017-03-20)
PROC: 10E0XZZ Delivery of Products of Conception, External Approach (ICD-10-PCS; principal; 2017-03-20)
DX: O42.913 Preterm premature rupture of membranes, unspecified as to length of time between rupture and onset of labor, third trimester (principal); O60.14X0 Preterm labor third trimester with preterm delivery third trimester, not applicable or unspecified; O71.4 Obstetric high vaginal laceration alone; O69.81X0 Labor and delivery complicated by cord around neck, without compression, not applicable or unspecified; Z3A.35 35 weeks gestation of pregnancy; Z37.0 Single live birth

== ENCOUNTER → 2017-04-30 | Outpatient (CLI) | payer OTHER | END | disposition home or self-care (01) | LOC: C.PAPS 09:46 | PROVIDERS: ATTEND Obstetrics & Gynecology | DX: Z12.4 Encounter for screening for malignant neoplasm of cervix (principal) ==

== ENCOUNTER 2019-07-01 18:09 | Inpatient (IN) ==
[2019-07-01] MEDS: LACTATED RINGER'S 1,000 ML IV PRN ×2 (18:34→20:32)
[2019-07-01] MEDS ORDERED: OXYTOCIN 30 UNITS/500 ML BAG IV PRN ×2 (19:20→21:48)
[2019-07-01] MEDS ORDERED: BUPIVACAINE 0.25% 30 ML VIAL ONE (19:36)
[2019-07-01] MEDS ORDERED: ePHEDrine sulfate 50 MG/ML AMP ONE (19:36)
[2019-07-01] MEDS ORDERED: fentaNYL citrate 100 MCG/2 ML VIAL ONE (19:36)
[2019-07-01] MEDS ORDERED: fentaNYL 2MCG/ML ROPIV 1.25MG/ML 100 ML BAG EPI ONE (19:37)
[2019-07-01 19:39] LABS: Hematocrit (blood only) 39.6 % (37-47); Hemoglobin 13.6 g/dL (12.0-16.0); Mean Corpuscular Hemoglobin 31.3 pg (25-34); Mean Platelet Volume 10.3 fL (7.4-10.4); Platelet Count 221 K/uL (130-400); RDW Coefficient of Variation 12.9 % (11.5-14.5); RDW Standard Deviation 43.4 fL (36.4-46.3); Red Blood Count 4.35 M/uL (4.2-5.4)
[2019-07-01 19:51] LABS: Mean Corpuscular Hgb Conc 34.3 g/dL (32-36)
--- NOTE | 2019-07-01 20:16 | Anesthesiology Consultation ---
Date of Service July 01, 2019 Assessment & Plan Chart Review Chart Review: Acceptable Risk for Labor Epidural Consults Requested none History Height/Weight Height: 5 ft 7 in Weight: 64.864 kg Allergies Allergy/AdvReac Type Severity Reaction Status Date / Time No Known Allergies Allergy Verified 07/01/19 13:14 Medications Home Medications Medication Instructions Recorded Confirmed Last Taken PNV [id number]-ferrous fumarate-FA 1 tab PO DAILY 07/01/19 07/01/19 06/30/19 20:30 [] docusate sodium [Colace] 100 mg PO DAILY 07/01/19 07/01/19 07/01/19 15:00 ferrous sulfate 325 mg PO DAILY 07/01/19 07/01/19 07/01/19 15:00 Active Medications Generic Name Dose Route Start Last Admin Trade Name Freq PRN Reason Stop Dose Admin Lactated Ringer's 1,000 mls @ 125 mls/hr 07/01/19 19:40 07/01/19 18:34 Lr IV 07/03/19 19:39 999 mls/hr .Q8H PRN Administration L&D Protocol Protocol Past Medical History Medical History Chlamydia Encounter for anatomic survey Post depression labor premature rupture of membranes (Resolved) Varicella Past Family History Family History Mother PFO (patent foramen ovale) Depression Mother Anemia Past Surgical History Surgical History S/P wisdom tooth extraction Social History Smoking Status: Never smoker Do You Dip or Chew Tobacco: No Hx Alcohol Use: No Hx Substance Use: No Physical Exam Vital Signs Last Vital Signs Temp 36.9 C 07/01/19 18:41 Pulse 90 07/01/19 20:14 Resp 20 07/01/19 18:41 BP 107/58 L 07/01/19 20:14 Pulse Ox 100 07/01/19 20:11 Testing Laboratory Results 07/01/19 19:31
[2019-07-01] MEDS ORDERED: fentaNYL 2MCG/ML ROPIV 1.25MG/ML 100 ML BAG EPI PRN (20:17)
[2019-07-01] MEDS ORDERED: DiphenhydrAMINE HCL 50 MG/ML VIAL IV PRN (20:17)
[2019-07-01] MEDS ORDERED: NALBUPHINE HCL INJ 10 MG/ML AMP IV PRN (20:17)
[2019-07-01] MEDS ORDERED: NALOXONE HCL 0.4 MG/1 ML VIAL/CARP IV PRN (20:17)
[2019-07-01] MEDS ORDERED: NALOXONE HCL 1 MG in SODIUM CHLORIDE 0.9% 1000ML 1,000 ML IV PRN (20:17)
[2019-07-01] MEDS ORDERED: ePHEDrine sulfate 50 MG/ML AMP IV PRN (20:17)
--- NOTE | 2019-07-01 21:19 | Delivery Summary ---
Vaginal Delivery Summary Date of Service July 01, 2019 Vaginal Delivery Summary Vaginal Delivery Summary: Pre-delivery diagnoses: 33yo @ 38 4/7, spont labor Post-delivery diagnoses: same Procedure: spontaneous vaginal delivery Surgeon: Katiana Christiansen DO Complications: none Findings: Viable male . Apgars: 8/9. Weight pending, please see nursery records. Estimated blood loss: 300ml Description of delivery: The patient progressed to complete with epidural anesthesia. She then began to push. She spontaneously vaginally delivered a viable from the cephalic presentation. The head delivered in MICHAEL position. Nuchal cord x 1, easily reduced. The anterior shoulder delivered, followed by the posterior shoulder, followed by the body. The baby was placed on mother's abdomen and a spontaneous cry was heard. Delayed cord clamping was employed, and the cord was doubly clamped and cut. Cord blood was obtained. The placenta was delivered spontaneously intact with a 3-vessel cord. The uterus and vagina were swept of clots and debris. IV pitocin was given. The uterus became firm. The cervix, vagina, and perineum were inspected and no lacerations were noted. Excellent hemostasis was observed. The mother and baby are recovering in stable and good condition in the room. Sponge and instrument counts were correct x 2. Katiana Christiansen DO [facility] [place]
--- NOTE | 2019-07-01 21:36 | Anesthesia Procedure Note ---
Date of Service July 01, 2019 Anesthesia Post Epidural Note Vital Signs Vital Signs: Temp Pulse Resp BP Pulse Ox 37.0 C 106 H 18 159/67 H 97 07/01/19 20:29 07/01/19 21:31 07/01/19 20:30 07/01/19 21:20 07/01/19 21:31 Pain Intensity Bilateral Abdomen: Pain Intensity: 1 Notes Mental Status: alert / awake / arousable Nausea / Vomiting: adequately controlled Pain: adequately controlled Airway Patency, RR, SpO2: stable & adequate BP & HR: stable & adequate Hydration State: stable & adequate Neuraxial Anesthesia: was administered and sensory block is resolving Anesthetic Complications: no major complications apparent and Pt Satisfied with anesthetic care Epidural: Removed without complications and With tip intact
[2019-07-01] MEDS ORDERED: OXYCODONE/ACETAMINOPHEN 5mg/325mg TAB PO PRN (21:48)
[2019-07-01] MEDS ORDERED: BENZOCAINE 20% AER SPR 82.5 GM CAN EXT PRN (21:48)
[2019-07-01] MEDS ORDERED: bisacodyL 10 MG SUPP PR PRN (21:48)
[2019-07-01] MEDS ORDERED: SUPERCREAM 0.870% 15 GM JAR EXT PRN (21:48)
[2019-07-01] MEDS ORDERED: HYDROCORTISONE ACETATE 25 MG SUPP PR PRN (21:48)
[2019-07-01] MEDS ORDERED: ACETAMINOPHEN 325 MG TAB PO PRN (21:48)
[2019-07-01] MEDS ORDERED: DIPHTHERIA/TETANUS/PERTUSSIS 0.5 ML SYR/VIAL IM ONE (21:48)
[2019-07-02] MEDS: IBUPROFEN 600 MG TAB PO PRN ×5 (01:43→20:25)
--- NOTE | 2019-07-02 06:26 | Obstetrical Progress Note ---
Date of Service July 02, 2019 Assessment & Plan (1) Status post vaginal delivery: Lory is a 33 yo on PPD 1 after at 38w 5d - GBS -, Blood Type O+, Rubella immune -Vitals reviewed and WNL -patient is doing clinically well Continue routine post care - After discharge will have [address] Christiansen. Admission and Anticipated Discharge Date Admission Date: July 01, 2019 Supervising Physician Co-Signing Physician Notes Resident Physician Supervision Note: I interviewed and examined the patient. Discussed with Dr. Neely and agree with findings and plan as documented in the note. Any exceptions or clarifications are listed here: PPD#1 doing well. Continue routine care. Documented By: Katiana Christiansen, Subjective Ambulation: ambulating normally Voiding: no voiding problems Passing Gas:: Yes Diet Tolerance:: regular diet Lochia:: Small Feeding Type:: breast feeding some cramping, worse with nursing Review of Systems Constitutional: no fever, no chills and no sweats Eyes: no worsening vision Respiratory: no cough and no dyspnea Cardiovascular: no chest pain, no palpitations, no edema and no calf pain Gastrointestinal: no nausea and no vomiting Genitourinary: no dysuria and no urinary frequency Neurologic: no headache(s) Physical Exam Constitutional: WD/WN, vitals as above no acute distress Respiratory: normal respiratory effort, lungs clear to auscultation does not use accessory muscles Auscultation: no crackles, no rales, no rhonchi, no wheezes and no pleural rub Cardiovascular: Rate/Rhythm: regular rate and regular rhythm Heart Sounds: normal S1 and normal S2; no gallop, no murmur and no cardiac rub Extremities: no calf tenderness and no pedal edema Gastrointestinal (Abdomen): Inspection/Auscultation: normal bowel sounds; abdomen not distended Percussion/Palpation: abdomen soft Genitourinary: Uterus: fundus firm, palpable 2 cm below the umbilicus Results & Data ([facility]) Vital Signs (Past 12 Hours) Vital Signs Temp Pulse Pulse Resp BP BP Pulse Ox 07/02/19 04:45 36.7 C 81 18 119/69 07/02/19 00:30 36.8 C 81 18 135/83 07/01/19 23:34 96 H 130/71 07/01/19 23:19 96 H 140/82 05 23:04 91 H 125/79 05 22:49 93 H 18 123/81 05 22:38 88 92 07/01/19 22:36 96 H 96 07/01/19 22:34 87 127/77 05 22:31 100 H 96 07/01/19 22:26 101 H 97 07/01/19 22:25 99 H 92 07/01/19 22:21 98 H 97 07/01/19 22:19 95 H 18 120/70 05 22:16 92 H 98 07/01/19 22:11 98 H 99 07/01/19 22:06 90 98 07/01/19 22:04 81 18 117/81 07/01/19 22:01 91 H 98 07/01/19 21:56 102 H 98 07/01/19 21:51 102 H 97 07/01/19 21:49 93 H 18 111/78 07/01/19 21:46 86 98 07/01/19 21:41 96 H 120/76 99 07/01/19 21:36 85 98 05 21:35 18 07/01/19 21:31 106 H 97 07/01/19 21:26 93 H 98 07/01/19 21:21 94 H 98 07/01/19 21:20 103 H 18 159/67 H 07/01/19 21:16 99 H 99 07/01/19 21:11 128 H 18 98 07/01/19 21:08 131 H 144/88 H 07/01/19 21:06 109 H 100 07/01/19 21:01 130 H 100 0520 20:56 116 H 100 20 20:55 127 H 87 L 05 20:53 100 H 142/84 H 07/01/19 20:51 105 H 100 0520 20:50 18 07/01/19 20:46 87 99 0520 20:42 100 H 92 0520 20:41 92 H 98 0520 20:36 102 H 100 051420 20:35 92 H 91 0520 20:34 82 115/62 05 20:31 85 100 05 20:30 85 18 122/63 07/01/19 20:29 37.0 C 07/01/19 20:26 98 H 100 07/01/19 20:25 89 109/55 L 07/01/19 20:21 96 H 100 07/01/19 20:18 101 H 116/65 07/01/19 20:16 95 H 113/65 100 07/01/19 20:14 90 107/58 L 07/01/19 20:12 85 113/59 L 07/01/19 20:11 90 100 07/01/19 20:10 98 H 115/66 07/01/19 20:09 88 117/63 07/01/19 20:07 90 133/61 90 07/01/19 20:06 98 H 100 07/01/19 20:04 89 131/67 07/01/19 20:01 82 100 07/01/19 19:56 94 H 100 07/01/19 19:51 100 H 99 07/01/19 19:46 100 H 100 07/01/19 18:50 88 136/90 07/01/19 18:41 36.9 C 92 H 20 136/90 07/01/19 18:40 92 H 146/85 H Resident Activity Tracking Resident Involvement: Resident Care Provided Care Provided: OB Delivery
[2019-07-02 06:37] LABS: Hematocrit (blood only) 34.8 % (37-47); Hemoglobin 11.7 g/dL (12.0-16.0)
[2019-07-02] MEDS: PRENATAL VITAMIN 1 TAB PO SCH (07:54)
[2019-07-02] MEDS: DOCUSATE SODIUM 100 MG CAP PO SCH ×2 (07:54→20:25)
[2019-07-02] MEDS ORDERED: bisacodyL 5 MG TABEC PO SCH (20:00)
--- NOTE | 2019-07-03 07:48 | Obstetrical Progress Note ---
Date of Service July 03, 2019 Assessment & Plan (1) Supervision of normal intrauterine in multigravida: - doing well - desires d/c - instructions given - f/u in 6 weeks Subjective Ambulation: ambulating normally Voiding: no voiding problems Physical Exam Constitutional WD/WN, vitals as above Gastrointestinal (Abdomen) Fundus firm below umbilicus Musculoskeletal No deep calf tenderness Results & Data Vital Signs (Past 12 Hours) Vital Signs Temp Pulse Resp BP Pulse Ox 07/02/19 23:55 98.4 F 84 16 115/67 94
[2019-07-03] MEDS: DOCUSATE SODIUM 100 MG CAP PO SCH (07:55)
[2019-07-03] MEDS: PRENATAL VITAMIN 1 TAB PO SCH (07:55)
== END 2019-07-03 14:00 | disposition home or self-care (01) | DRG 807 ==
LOC: OPB 18:09 → 4S1 18:10 → 4S2 07-02 00:59